=== PATIENT | male | born 1950 | race Caucasian/White ===

== ENCOUNTER 2022-08-30 09:22 | Emergency (ER) | payer MEDICARE, OTHER ==
[~2022-08-30] VITALS: Ht 180.3 cm; Wt 77.1 kg
[~2022-08-30 09:22] MED LIST: ADULT ASPIRIN E81 MG PO; ASPIRIN EC325 MG PO; ATIVAN1 M1 PO; C-PAP PO; DIGOXIN0.25 MG PO; DILTIAZEM240 MG PO; FLEXERIL PO; FLEXERIL10 MG PO; LOPRESSOR 550 MG/TAB PO; LOPRESSOR50 MG PO; LORAZEPAM0.5 MG PO; LOVASTATIN40 MG PO; METOPROL TAR50 MG PO; MULTIVITAMI9 PO; TIZANIDINE HCL4 MG PO; TRICOR145 MG PO; ULTRAM50 M1 PO; XALATAN 0.005%2.5 ML OP
[2022-08-30 11:38] LABS: BASO% 0.9 % (0-3); EOS% 2.3 % (0-8); HEMOGLOBIN 16.8 g/dl (14.0-18.0); IMMATURE GRANULOCYTES 0.2 % (0.0-5.0); LYMPH% 20.7 % (15-41); MEAN CELL VOLUME 88.1 fL CALC (80.0-100.0); MEAN CORPUSCULAR HGB 28.5 pG CALC (26.0-32.0); MEAN CORPUSCULAR HGB CONC 32.3 g/dL CAL (32.0-36.0); NEUT# 6.56 thou/uL (1.82-7.42); NEUT% 68.9 % (42-76); RED BLOOD COUNT 5.9 mill/uL (4.70-6.10); RED CELL DISTRI WIDTH 13.3 % (11.5-15.5)
[2022-08-30 11:50] LABS: ALBUMIN 5.2 g/dL (3.2-5.0); ALKALINE PHOSPHATASE 70 u/l (38-126); ANION GAP 16 (6-22 (CALC)); BILIRUBIN, TOTAL 0.7 mg/dL (0.2-1.3); BUN 8 mg/dL (8-23); BUN/CREATININE RATIO 11 (12-20 (CALC)); CARBON DIOXIDE 25 mmol/l (22-30); CHLORIDE 106 mmol/l (95-108); CREATININE 0.7 mg/dL (0.7-1.3); GFR FOR AFR.AMER. > 60 ML/MIN (>=60 (CALC)); GFR OTHER RACES > 60 ML/MIN (>=60 (CALC)); POTASSIUM 4.3 mmol/l (3.5-5.1); SGOT/AST 29 u/l (19-48); SODIUM 143 mmol/l (137-146); TOTAL PROTEIN 9.7 g/dL (6.3-8.2)
[2022-08-30 11:54] LABS: ACT PARTIAL THROMBO TIME 31.2 SECONDS (20.0-32.5); INTERNATIONAL NORMALIZED RATIO 1.2 RATIO (0.7-1.3); PROTHROMBIN TIME 11.4 SECONDS (9.0-12.5)
[2022-08-30 12:24] LABS: URINE BILIRUBIN - DIPSTICK NEGATIVE (NEGATIVE); URINE BLOOD DIPSTICK LARGE (NEGATIVE); URINE GLUCOSE - DIPSTICK NEGATIVE (NEGATIVE); URINE KETONE NEGATIVE (NEGATIVE); URINE LEUK ESTERASE NEGATIVE (NEGATIVE); URINE NITRITE - DIPSTICK NEGATIVE (Negative); URINE PH 5.5 (4.5-8.0); URINE PROTEIN - DIPSTICK NEGATIVE (NEG-TRACE); URINE UROBILINOGEN - DIPSTICK 0.2 E.U./dL (0.2)
[2022-08-30 12:25] LABS: URINE COLOR PINK; URINE RBC 25-50 RBC/hpf (0-5)
[2022-08-30 16:21] VITALS: BP 128/74
== END 2022-08-30 16:23 | disposition home or self-care (01) ==
LOC: ED 09:22
PROVIDERS: Family Medicine
PROC: 0T9B70Z Drainage of Bladder with Drainage Device, Via Natural or Artificial Opening (ICD-10-PCS; principal; 2022-08-30)
DX: R31.9 Hematuria, unspecified (principal); I10 Essential (primary) hypertension; I48.91 Unspecified atrial fibrillation; Z95.0 Presence of cardiac pacemaker